=== PATIENT | female | born 1950 | race Caucasian/White ===

== ENCOUNTER → 2017-01-06 | Outpatient (CLI) | payer MEDICARE ==
--- NOTE | 2017-01-06 15:19 | CARD ---
APPROVED REPORT INDICATION Dyspnea on exertion RISK FACTORS Hypertension PROCEDURE The patient underwent an Exercise Stress Test using the Norberto Protocol. Blood pressure, heart rate, a nd EKG were monitored. An Echocardiogram was performed by explosive ordnance disposal technician in four stages in quad fashion. At peak stress four se lected images were obtained and placed side by side with resting images for comparison. STRESS ECHO FINDINGS The resting Echocardiogram showed normal left ventricular contractility with an estimated Ejection Fr action of about 65 %. Normal augmentation of myocardial wall segments using a 16 segment model. Test Type: Exercise Stress Nurse/Tech: Kylee Christensen R.N. Test Indications: dyspnea Cardiac History and Allergies: htn Medications: lisinopril Resting ECG: sr Resting Heart Rate: 86 bpm Resting Blood Pressure: 153/86mmHg Pretest Chest Pain: No chest pain Nurse/Tech Notes lungs cta, heart tones regular, good radial pulse Consent: The procedure was explained to the patient in lay terms. Informed consent was witnessed. James rios was entered into [employer]. History and Stress Test performed by Kylee Christensen R.N. Pharm. Details Pharmacologic stress testing was performed using 0.4mg per 5ml of regadenoson given intravenously ove r 7-10 seconds. Stress Symptoms No chest pain or symptoms. POST EXERCISE Reason for Termination: Reached target heart rate Target HR: Yes Max HR: 152 bpm 99% of Maximum Predicted HR: 153 bpm Exercise duration: 7:34 min:sec, Stage Exercise capacity: 10.1METs Max Blood Pressure: 186/69mmHg Blood Pressure response to exercise: Normal blood pressure response during stress. Heart Rate response to exercise: normal Chest Pain: No. Arrhythmia: No. ST Change: No. INTERPRETATION Stress EKG Conclusion: The resting EKG shows a normal sinus rhythm with mild nonspecific ST-T wave ch anges. The stress EKG shows no significant changes from baseline. No EKG evidence of stress-induced ischemia. <Conclusion> 1. Good exercise tolerance with the patient walking for 7 minutes and 34 seconds on a Norberto protocol. 2. No chest pain with exertion. 3. No EKG evidence of stress-induced ischemia. 4. Normal LV systolic function at rest. 5. Normal LV response to exertion with no regional wall motion abnormalities. 6. Low risk treadmill stress echo examination.
== END | disposition home or self-care (01) ==
LOC: ECHO 12:49
PROVIDERS: ATTEND Internal Medicine Cardiovascular Disease
DX: R06.09 Other forms of dyspnea (principal)
CPT/HCPCS: 93017; 93350

== ENCOUNTER → 2019-08-08 | Outpatient (CLI) | payer MEDICARE ==
[2018-02-03 11:11] VITALS: BP 139/69
[~2019-08-08] MED LIST: ASPI81TA50 PO; ATOR10TA60 PO; LISI10TA2 PO
--- NOTE | 2019-08-08 09:29 | CARD ---
MR#: [id number] Date of Study: 08/08/2019 Ordering Physician: KAI PAIGE, Referring Physician: KAI PAIGE Tech: Danuta Lobo RDCS APPROVED REPORT EXAM: Two-dimensional and M-mode echocardiogram with Doppler and color Doppler. Other Information Quality : Good INDICATION Hypertension/HCVD 2D DIMENSIONS RVDd2.4 (2.9-3.5cm)Left Atrium(2D)2.6 (1.6-4.0cm) IVSd0.7 (0.7-1.1cm)Aortic Root(2D)2.7 (2.0-3.7cm) LVDd4.3 (3.9-5.9cm)LVOT Diameter2.0 (1.8-2.4cm) PWd0.7 (0.7-1.1cm)LVDs2.7 (2.5-4.0cm) FS (%) 30.0 %SV58.5 ml LVEF(%)60.0 (>50%) Aortic Valve AoV Peak Terence.112.4cm/sAoV VTI21.5cm AO Peak GR.5.1mmHgLVOT Peak Terence.91.4cm/s LVOT VTI 18.80cmAO Mean GR.3mmHg DONAVAN (VMAX)2.65zh7NAZ (VTI)2.66cm2 Mitral Valve MV E Urbthtpf90.4cm/sMV DECEL STKR896ar MV A Jkkqkoxa496.2cm/sMV HFO91xa E/A Ratio0.6MVA (PHT)3.74cm2 TDI E/Lateral E'9.7E/Medial E'14.3 Tricuspid Valve TR P. Xjfnfbbc633ze/sRAP WOUBUHJH3rlXr TR Peak Gr.01kjOvXKKN38kpCo Pulmonary Vein S1 Goolatdb68.4cm/sD2 Pmpjjkfn22.5cm/s LEFT VENTRICLE The left ventricle is normal size. There is normal left ventricular wall thickness. The left ventricu lar systolic function is normal. The Ejection Fraction is 55-60%. There is normal LV segmental wall m otion. Transmitral Doppler flow pattern is Grade I-abnormal relaxation pattern. RIGHT VENTRICLE The right ventricle is normal size. The right ventricular systolic function is normal. ATRIA The left atrium size is normal. The right atrium size is normal. The interatrial septum is intact wit h no evidence for an atrial septal defect or patent foramen ovale as noted on 2-D or Doppler imaging. AORTIC VALVE The aortic valve is calcified but opens well. Doppler and Color Flow revealed no significant aortic r egurgitation. There is no significant aortic valvular stenosis. MITRAL VALVE The mitral valve is normal in structure and function. There is no evidence of mitral valve prolapse. There is no mitral valve stenosis. Doppler and Color Flow revealed trace mitral regurgitation. TRICUSPID VALVE The tricuspid valve is normal in structure and function. Doppler and Color Flow revealed trace tricus pid regurgitation. The PA pressure was estimated at 21 mmHg. There is no tricuspid valve stenosis. PULMONIC VALVE The pulmonic valve is not well visualized. Doppler and Color Flow revealed trace to mild pulmonic lona vular regurgitation. There is no pulmonic valvular stenosis. GREAT VESSELS The aortic root is normal in size. The ascending aorta is normal in size. The IVC is normal in size a nd collapses >50% with inspiration. PERICARDIAL EFFUSION There is no evidence of significant pericardial effusion. Critical Notification Critical Value: No <Conclusion> The left ventricular systolic function is normal. The Ejection Fraction is 55-60%. There is normal LV segmental wall motion. Transmitral Doppler flow pattern is Grade I-abnormal relaxation pattern. Trace mitral regurgitation. Trace tricuspid regurgitation. The PA pressure was estimated at 21 mmHg. There is no evidence of significant pericardial effusion. Signed by : Kai Paige, Electronically Approved : 08/08/2019 09:29:29
== END | disposition home or self-care (01) ==
LOC: ECHO 07:40
PROVIDERS: ATTEND Internal Medicine Cardiovascular Disease
DX: I08.8 Other rheumatic multiple valve diseases (principal); I10 Essential (primary) hypertension
CPT/HCPCS: 93306

== ENCOUNTER → 2020-09-11 | Outpatient (CLI) | payer MEDICARE ==
[2018-02-03 11:11] VITALS: BP 139/69
--- NOTE | 2020-09-11 14:40 | CARD ---
MR#: [id number] Date of Study: 09/11/2020 Ordering Physician: KAI PAIGE, Referring Physician: KAI PAIGE Tech: Sonali Vital [facility] APPROVED REPORT EXAM: Two-dimensional and M-mode echocardiogram with Doppler and color Doppler. Other Information Quality : Good Rhythm : NSR INDICATION Hypertension/HCVD RISK FACTORS Hypertension Hyperlipidemia 2D DIMENSIONS RVDd2.7 (2.9-3.5cm)Left Atrium(2D)3.5 (1.6-4.0cm) IVSd0.9 (0.7-1.1cm)Aortic Root(2D)2.7 (2.0-3.7cm) LVDd4.2 (3.9-5.9cm)LVOT Diameter1.9 (1.8-2.4cm) PWd0.9 (0.7-1.1cm)LVDs2.3 (2.5-4.0cm) FS (%) 43.5 %SV57.7 ml Aortic Valve AoV Peak Terence.143.3cm/sAoV VTI32.5cm AO Peak GR.8.2mmHgLVOT Peak Terence.80.7cm/s AO Mean GR.4mmHgAVA (VMAX)1.61cm2 Mitral Valve MV E Kqxhmyvo04.7cm/sMV DECEL OTDI099qm MV A Kelfpyuo496.0cm/sE/A Ratio0.8 Pulmonary Valve PV Peak Feafffth356.7cm/s Tricuspid Valve TR P. Gwhtmqnf322jp/sTR Peak Gr.23mmHg Pulmonary Vein S1 Gmrrmljv68.4cm/sD2 Ifqlxmmy47.8cm/s PVa tbcomkgy37kejs LEFT VENTRICLE The left ventricle is normal size. There is normal left ventricular wall thickness. The left ventricu lar systolic function is normal and the ejection fraction is within normal range. Estimated ejection fraction 55-60%. There is normal LV segmental wall motion. RIGHT VENTRICLE The right ventricle is normal size. There is normal right ventricular wall thickness. The right ventr icular systolic function is normal. ATRIA The left atrium size is normal. The right atrium size is normal. The interatrial septum is intact wit h no evidence for an atrial septal defect or patent foramen ovale as noted on 2-D or Doppler imaging. AORTIC VALVE The aortic valve is normal in structure and function. Doppler and Color Flow revealed no significant aortic regurgitation. There is no significant aortic valvular stenosis. MITRAL VALVE The mitral valve is normal in structure and function. There is no evidence of mitral valve prolapse. Doppler and Color-flow revealed mild mitral regurgitation. TRICUSPID VALVE The tricuspid valve is normal in structure and function. Doppler and Color Flow revealed mild tricusp id regurgitation. Estimated PAP 26 mmHg. PULMONIC VALVE The pulmonary valve is normal in structure and function. Doppler and Color Flow revealed trace pulmon ic valvular regurgitation. GREAT VESSELS The aortic root is normal in size. The ascending aorta is normal in size. The pulmonary artery is nor mal. The IVC is normal in size and collapses >50% with inspiration. PERICARDIAL EFFUSION There is no evidence of significant pericardial effusion. Critical Notification Critical Value: No <Conclusion> The left ventricle is normal size. The left ventricular systolic function is normal and the ejection fraction is within normal range. Estimated ejection fraction 55-60%. Doppler and Color Flow revealed no significant aortic regurgitation. There is no significant aortic valvular stenosis. Doppler and Color-flow revealed mild mitral regurgitation. Doppler and Color Flow revealed mild tricuspid regurgitation. Estimated PAP 26 mmHg. Signed by : Vega Odonnell MD Electronically Approved : 09/11/2020 14:39:14
== END ==
LOC: ECHO 10:14
PROVIDERS: ATTEND Internal Medicine Cardiovascular Disease
DX: I08.1 Rheumatic disorders of both mitral and tricuspid valves (principal)
CPT/HCPCS: 93306

== ENCOUNTER → 2021-10-21 | Outpatient (CLI) | payer MEDICARE ==
[2018-02-03 11:11] VITALS: BP 139/69
[~2021-10-21] MED LIST changes: +LISI10TA16 PO; -LISI10TA2 PO
--- NOTE | 2021-10-21 11:02 | RAD ---
MR#: [id number] Date of Study: 10/21/2021 Ordering Physician: KAI PAIGE, Referring Physician: KAI PAIGE, Tech: Bibi Spain RVT, OLYA APPROVED REPORT Patient Location: OUT-PATIENT Laterality:Bilateral Surgery/Intervention Endarterectomy: right Doppler Spectral Velocity Analysis Right Left pCCA 87/13 cm/spCCA 64/16 cm/s mCCA 83/20 cm/smCCA 68/22 cm/s dCCA 83/22 cm/sdCCA 44/14 cm/s ECA 76/ cm/sECA 109/ cm/s pICA 47/14 cm/spICA 50/16 cm/s Neeraj 75/23 cm/smICA 72/24 cm/s dICA 63/22 cm/sdICA 71/25 cm/s ICA/CCA 0.86ICA/CCA 1.13 Findings Grayscale images of the bilateral carotid vessels demonstrates mild diffuse intimal hyperplasia and a therosclerotic plaque. Spectral waveforms and color Doppler are grossly within normal limits with overall 0 to less than 50% stenosis based on velocity criteria. Normal ICA to CCA ratios. Normal antegrade vertebral velociti es. Critical Notification Critical Value: No <Conclusion> 1. No significant extracranial carotid occlusive disease bilaterally Signed by : Fredo Pino, Electronically Approved : 10/21/2021 11:02:05
--- NOTE | 2021-10-21 17:11 | CARD ---
MR#: [id number] Date of Study: 10/21/2021 Ordering Physician: KAI PAIGE, Referring Physician: KAI PAIGE Tech: Sonali Vital [facility] APPROVED REPORT EXAM: Two-dimensional and M-mode echocardiogram with Doppler and color Doppler. Other Information Quality : AverageHR: 62bpm Rhythm : NSR INDICATION Hypertension/HCVD RISK FACTORS Hypertension 2D DIMENSIONS RVDd2.4 (2.9-3.5cm)Left Atrium(2D)3.5 (1.6-4.0cm) IVSd0.9 (0.7-1.1cm)Aortic Root(2D)2.7 (2.0-3.7cm) LVDd4.2 (3.9-5.9cm)LVOT Diameter2.2 (1.8-2.4cm) PWd1.0 (0.7-1.1cm)LVDs2.4 (2.5-4.0cm) FS (%) 43.5 %SV59.2 ml LVEF(%)75.1 (>50%) Aortic Valve AoV Peak Terence.121.8cm/sAoV VTI27.2cm AO Peak GR.5.9mmHgLVOT Peak Terence.90.2cm/s AO Mean GR.3mmHgAVA (VMAX)2.75cm2 Mitral Valve MV E Jatfvalh79.0cm/sMV DECEL ENRD587dm MV A Clpxbqaw784.1cm/sE/A Ratio0.8 Pulmonary Valve PV Peak Vrfeuvgs228.9cm/s Tricuspid Valve TR P. Ghyuokec744jj/sTR Peak Gr.28mmHg LEFT VENTRICLE The left ventricle is normal size. There is normal left ventricular wall thickness. The left ventricu lar systolic function is normal and the ejection fraction is within normal range. Estimated ejection fraction 60%. There is normal LV segmental wall motion. Transmitral Doppler flow pattern is Grade I-a bnormal relaxation pattern. RIGHT VENTRICLE The right ventricle is normal size. There is normal right ventricular wall thickness. The right ventr icular systolic function is normal. ATRIA The left atrium size is normal. The right atrium size is normal. The interatrial septum is intact wit h no evidence for an atrial septal defect or patent foramen ovale as noted on 2-D or Doppler imaging. AORTIC VALVE The aortic valve is normal in structure and function. Doppler and Color Flow revealed no significant aortic regurgitation. There is no significant aortic valvular stenosis. MITRAL VALVE The mitral valve is normal in structure and function. There is no evidence of mitral valve prolapse. There is no mitral valve stenosis. Doppler and Color-flow revealed trace mitral regurgitation. TRICUSPID VALVE The tricuspid valve is normal in structure and function. Doppler and Color Flow revealed mild tricusp id regurgitation. Estimated PAP 32 mmHG. There is no tricuspid valve stenosis. PULMONIC VALVE Doppler and Color Flow revealed mild pulmonic valvular regurgitation. There is no pulmonic valvular s tenosis. GREAT VESSELS The aortic root is normal in size. The ascending aorta is normal in size. The IVC is normal in size a nd collapses >50% with inspiration. PERICARDIAL EFFUSION There is no evidence of significant pericardial effusion. Critical Notification Critical Value: No <Conclusion> The left ventricular systolic function is normal and the ejection fraction is within normal range. E stimated ejection fraction 60%. There is normal LV segmental wall motion. Signed by : Fredo Pino, Electronically Approved : 10/21/2021 17:10:58
== END ==
LOC: ECHO 08:26
PROVIDERS: ATTEND Internal Medicine Cardiovascular Disease
DX: I37.1 Nonrheumatic pulmonary valve insufficiency (principal); I07.1 Rheumatic tricuspid insufficiency; I65.23 Occlusion and stenosis of bilateral carotid arteries; I10 Essential (primary) hypertension
CPT/HCPCS: 93306; 93880; C8929